=== PATIENT | female | born 1945 | race Caucasian/White ===

== ENCOUNTER 2019-09-25 00:36 | Outpatient (CLI) | payer MEDICARE, SELFPAY ==
[2019-09-25 19:09] LABS: SARS-CoV-2 RNA PCR Negative
== END 2019-09-25 00:37 | disposition home or self-care (01) ==
LOC: ANHCOVIDDT 00:37
PROVIDERS: Visit Provider Internal Medicine Gastroenterology
DX: Z01.812 Encounter for preprocedural laboratory examination (principal); Z11.59 Encounter for screening for other viral diseases
CPT/HCPCS: 87635; C9803; U0003

== ENCOUNTER 2019-09-27 01:43 | Day surgery (SDC) | payer MEDICARE, SELFPAY ==
[2019-09-21 10:53] VITALS: BMI 27.6
[2019-09-27 08:03] VITALS: BP 138/67; PULSE 82; RESP 20; TEMP 36.6; O2SAT 98; BMI 27.0
--- NOTE | 2019-09-27 08:13 | P.PNAN_ITS ---
Anes - Initial Pre Proc Eval Procedure: Operation Date: 09/27/19 09:00 Proposed Procedures p Screening Colonoscopy - Dhiraj Graves MD Date/Time: 09/27/19 08:13 Surgeon: Dhiraj Graves MD Pre Op Diagnosis: neoplasm screening Patient Data Age: 74 Gender: F Height: 5 ft 4 in Weight: 71.4 kg Last Vital Signs Temp 36.6 C 09/27/19 08:03 Pulse 82 09/27/19 08:03 Resp 20 09/27/19 08:03 BP 138/67 09/27/19 08:03 Pulse Ox 98 09/27/19 08:03 Allergies Allergy/AdvReac Type Severity Reaction Status Date / Time No Known Allergies Allergy Verified 09/27/19 08:02 Home Medications Medication Instructions Recorded Confirmed Type ergocalciferol (vitamin D2) 1,250 mcg PO WEEKLY 09/21/19 09/21/19 History [Vitamin D2] estradiol 0.5 mg PO DAILY 09/21/19 09/21/19 History lisinopril 10 mg PO DAILY 09/21/19 09/21/19 History medroxyprogesterone 2.5 mg PO DAILY 09/21/19 09/21/19 History simvastatin 20 mg PO DAILY 09/21/19 09/21/19 History Patient hx anesthesia problems: none Family hx anesthesia problems: none [facility] Past Medical History Medical History Hypertension Social History Social History Smoking status: Never smoker Alcohol intake: never Anes - Eval Final PreProcedure Day of Procedure 09/27/19 08:13 Patient weight: overweight Heart: regular rate and rhythm Lungs: clear to auscultation Airway: Mallampati scale class II Neurological: alert and oriented Last oral intake: >/= 8 hours ASA classification: II Emergent: no Anesthetic plan: proceed Anesthesia type and monitoring: general GIVS and standard monitoring Informed Consent: The patient's anesthetic plan and its attendant risks and benefits were discussed with the patient/family/POA. Questions were solicited and answers provided to the satisfaction of the patient/family/POA.
[2019-09-27] MEDS: LACTATED RINGERS 1,000 ML 150 ML IV CONT (08:16)
--- NOTE | 2019-09-27 08:24 | P.HP_ITS ---
History of Present Illness History of Present Illness Consent: Risks, benefits, and alternatives have been discussed and questions answered. Patient agrees to proceed with procedure. Chief complaint: neoplasm screening Narrative: Malcolm Matias is a 74 year old W female referred for screening colonoscopy. Patient is asymptomatic. No family history of colon polyps or colon cancer. Last colonoscopy was over 10 years ago. [facility] Past Medical History Medical History (Updated 09/27/19 @ 08:24 by Dhiraj Graves MD) Dyslipidemia Hypertension Surgical History Surgical History (Updated 09/27/19 @ 08:25 by Dhiraj Graves MD) History of left hip replacement Social History Social History Smoking status: Never smoker Alcohol intake: never Meds Home Medications and Allergies Home Medications Medication Instructions Recorded Confirmed Type ergocalciferol (vitamin D2) 1,250 mcg PO WEEKLY 09/21/19 09/21/19 History [Vitamin D2] estradiol 0.5 mg PO DAILY 09/21/19 09/21/19 History lisinopril 10 mg PO DAILY 09/21/19 09/21/19 History medroxyprogesterone 2.5 mg PO DAILY 09/21/19 09/21/19 History simvastatin 20 mg PO DAILY 09/21/19 09/21/19 History Allergies Allergy/AdvReac Type Severity Reaction Status Date / Time No Known Allergies Allergy Verified 09/27/19 08:02 Vital Signs Vital Signs - 24 hr 09/27/19 08:03 Temperature 36.6 C Pulse Rate 82 Respiratory Rate 20 Blood Pressure 138/67 Pulse Oximetry 98 Exam Const: Orientation/consciousness: patient oriented x3 Resp: Auscultation: clear to auscultation bilaterally Cardio: Rate: regular rate Rhythm: regular rhythm Heart sounds: no murmurs GI: GI Palp: Yes Soft to palpation, No Tenderness to palpation present (GI), Yes No hepatosplenomegaly present and No Palpable mass present Auscultation: normal bowel sounds Neuro: General: patient oriented x3 and no focal motor deficits Extrem: General: no pedal edema Assessment and Plan Additional Plan screening colonoscopy in average risk patient
[2019-09-27 09:20] VITALS: BP 113/57; PULSE 84; RESP 20; O2SAT 98
[2019-09-27 09:30] VITALS: BP 117/60; PULSE 77; RESP 20; O2SAT 98
[2019-09-27 09:40] VITALS: BP 117/58; PULSE 74; RESP 20; O2SAT 100
== END 2019-09-27 09:51 | disposition home or self-care (01) ==
PROVIDERS: Visit Provider Internal Medicine Gastroenterology
PROC: 0DJD8ZZ Inspection of Lower Intestinal Tract, Via Natural or Artificial Opening Endoscopic (ICD-10-PCS; CPT 45378; principal; 2019-09-27 09:00)
DX: Z12.11 Encounter for screening for malignant neoplasm of colon (principal); K57.30 Diverticulosis of large intestine without perforation or abscess without bleeding; D17.5 Benign lipomatous neoplasm of intra-abdominal organs; K64.4 Residual hemorrhoidal skin tags; I10 Essential (primary) hypertension; E78.5 Hyperlipidemia, unspecified; E66.3 Overweight; Z68.27 Body mass index [BMI] 27.0-27.9, adult; Z79.899 Other long term (current) drug therapy
CPT/HCPCS: G0121; J2704; J7120

== ENCOUNTER 2023-03-12 10:57 | Emergency (ER) | payer MEDICARE, OTHER, SELFPAY ==
[2023-03-12 11:13] VITALS: BP 120/60; PULSE 83; RESP 16; TEMP 36.9; O2SAT 100
--- NOTE | 2023-03-12 11:20 | ED.GENADULT ---
HPI - General Adult General Chief complaint: Extremity Problem,Nontraumatic Stated complaint: Right Foot Pain Source: patient, RN notes reviewed and old records reviewed Mode of arrival: ambulatory Limitations: no limitations History of Present Illness HPI narrative: 77-year-old female presents to [facility] with complaints right 2nd swelling, redness, pain this started 2-3 days ago. Patient denies injury. Patient states came today because redness is starting to go into foot. Patient states took 1 amoxicillin that she had left over this a.m. MD complaint: Toe pain Onset (ago): day(s) (3-4) Related Data Home Medications Medication Instructions Recorded Confirmed ergocalciferol (vitamin D2) 1,250 1,250 mcg PO WEEKLY 09/21/19 09/21/19 mcg (50,000 unit) capsule (Vitamin D2) estradiol 0.5 mg tablet 0.5 mg PO DAILY 09/21/19 09/21/19 lisinopril 10 mg tablet 10 mg PO DAILY 09/21/19 09/21/19 medroxyprogesterone 2.5 mg tablet 2.5 mg PO DAILY 09/21/19 09/21/19 simvastatin 20 mg tablet 20 mg PO DAILY 09/21/19 09/21/19 Allergies Allergy/AdvReac Type Severity Reaction Status Date / Time No Known Allergies Allergy Verified 09/27/19 08:02 Review of Systems Constitutional: Constitutional: Reports no additional constitutional complaints, Denies body ache(s), Denies chills, Denies fatigue, Denies fever(s) and Denies headache(s) Eyes: Eyes: Reports no additional eye complaints and Denies blurry vision ENT: Reports system reviewed and no additional complaints, except as documented, Denies vertigo, Denies dizziness, Denies ear discharge, Denies otalgia, Denies facial pain, Denies headache(s), Denies nasal congestion, Denies nasal discharge, Denies sinus pain, Denies sinus pressure and Denies sore throat Cardiovascular: Cardiovascular: Reports no additional cardiovascular complaints, Denies chest pain, Denies chest pain at rest, Denies rapid heart rate and Denies dyspnea Respiratory: Respiratory: Reports no additional respiratory complaints, Denies chest congestion, Denies cough, Denies pain on inspiration, Denies pain with cough and Denies dyspnea Gastrointestinal: Gastrointestinal: Denies abdominal pain, Denies diarrhea, Denies nausea and Denies vomiting Musculoskeletal: Comments: right 2nd toe pain, redness, swelling Integumentary/Breasts: Skin/Breast: Reports as per HPI and Denies rash Neurologic: Reports system reviewed and no additional complaints, except as documented, Denies vertigo, Denies dizziness and Denies headache(s) Endocrine: Endocrine: Denies fatigue PMFSH Past Medical History Medical History Dyslipidemia Hypertension Surgical History Surgical History History of left hip replacement Social History Social History Smoking status: Never smoker Alcohol intake: never Comments At the time of my signature, I reviewed and agree with the nursing past medical, surgical, social, and family history. There is no relevant family history pertinent to the patient complaint. Exam Const: General: cooperative, healthy appearing, no acute distress and well nourished Nutritional Appearance: well nourished Orientation/consciousness: patient oriented x3 Limitations: no limitations HENMT: Head: normal to inspection and normocephalic Ears: external ears normal, TM's normal bilaterally, mastoids normal and Abnormal EAC present Face/Nose/Sinus: normal facial exam Face and sinus: normal facial exam Mouth: Yes Normal oral and palatal mucosa present, Yes oropharynx normal and Yes moist mucous membranes Throat: tonsils normal, uvula midline and no uvular edema Eyes: General: appearance normal, both eyes and all related structures Sclera: sclerae normal Pupils: Equal, round and reactive pupils present Resp: Effort & Inspection: normal respir
== END 2023-03-12 11:32 | disposition home or self-care (01) ==
PROVIDERS: Emergency Provider Registered Nurse; PCP Family Medicine
DX: L03.115 Cellulitis of right lower limb (principal); I10 Essential (primary) hypertension; E78.5 Hyperlipidemia, unspecified
CPT/HCPCS: 99213; G0463